=== PATIENT | male | born 1960 | race Caucasian/White ===

== ENCOUNTER → 2017-11-06 | Outpatient (CLI) | payer OTHER ==
[2017-11-06 08:54] LABS: BUN/CREATININE RATIO 11.2 (6.0-26.0); CALCIUM 9.2 mg/dL (8.4-10.2); POTASSIUM 4.1 mmol/L (3.6-5.0); TOTAL PROTEIN 7.4 g/dL (6.3-8.2)
== END ==
LOC: LAB 08:25
PROVIDERS: Family Medicine
DX: Z00.00 Encounter for general adult medical examination without abnormal findings (principal); D22.9 Melanocytic nevi, unspecified; Z13.6 Encounter for screening for cardiovascular disorders; Z13.1 Encounter for screening for diabetes mellitus; Z80.42 Family history of malignant neoplasm of prostate; Z12.5 Encounter for screening for malignant neoplasm of prostate

== ENCOUNTER → 2017-11-18 | Outpatient (CLI) | payer OTHER ==
[2017-11-18 16:27] LABS: HEMOGLOBIN 11.4 g/dL (13.5-18.0); MEAN PLATELET VOLUME 9.5 fl (7.4-10.4); RED BLOOD COUNT 4.76 M/mm3 (4.20-5.60); RED CELL DISTRIBUTION WIDTH 15.8 % (11.5-14.5); WHITE BLOOD COUNT 5.8 K/mm3 (4.8-10.8)
== END ==
LOC: LAB 16:11
PROVIDERS: Family Medicine
DX: M25.651 Stiffness of right hip, not elsewhere classified (principal); M25.652 Stiffness of left hip, not elsewhere classified; M62.59 Muscle wasting and atrophy, not elsewhere classified, multiple sites

== ENCOUNTER → 2017-11-19 | Outpatient (CLI) | payer OTHER | LOC: LAB 16:45 | PROVIDERS: Family Medicine | DX: D64.9 Anemia, unspecified (principal) ==

== ENCOUNTER → 2017-11-27 | Outpatient (CLI) | payer OTHER | LOC: LAB 09:56 | DX: D64.9 Anemia, unspecified (principal) ==

== ENCOUNTER → 2017-12-11 | Outpatient (CLI) | payer OTHER ==
[2017-12-11 14:45] LABS: HEMATOCRIT 40.2 % (42.0-52.0); HEMOGLOBIN 12.8 g/dL (13.5-18.0); RED BLOOD COUNT 5.25 M/mm3 (4.20-5.60); RED CELL DISTRIBUTION WIDTH 18.2 % (11.5-14.5); WHITE BLOOD COUNT 4.9 K/mm3 (4.8-10.8)
[2017-12-13 10:14] LABS: C-REACTIVE PROTEIN XXX
== END ==
LOC: LAB 12:55
PROVIDERS: Family Medicine
DX: D50.9 Iron deficiency anemia, unspecified (principal); M79.1 Myalgia; D22.5 Melanocytic nevi of trunk; M25.50 Pain in unspecified joint

== ENCOUNTER → 2018-02-02 | Outpatient (CLI) | payer OTHER ==
[2018-02-02 15:26] LABS: HEMATOCRIT 41.3 % (42.0-52.0); HEMOGLOBIN 13.5 g/dL (13.5-18.0); MEAN CELL VOLUME 79 fl (78-100); MEAN CORPUSCULAR HEMOGLOBIN 26 pg (27-31); MEAN CORPUSCULAR HGB CONC 33 g/dL (33-37); MEAN PLATELET VOLUME 10.6 fl (7.4-10.4); PLATELET COUNT 216 K/mm3 (130-400); RED BLOOD COUNT 5.24 M/mm3 (4.20-5.60); WHITE BLOOD COUNT 10.8 K/mm3 (4.8-10.8)
[2018-02-02 15:52] LABS: ALBUMIN 4.2 g/dL (3.5-5.0); BUN/CREATININE RATIO 17.1 (6.0-26.0); CALCIUM 9.2 mg/dL (8.4-10.2); POTASSIUM 4.4 mmol/L (3.6-5.0); TOTAL BILIRUBIN 1.4 mg/dL (0.2-1.3); TOTAL PROTEIN 7.4 g/dL (6.3-8.2)
[2018-02-02 16:16] LABS: LYMPHOCYTE 6 % (20-51); MONOCYTE 2 % (3-10); NEUTROPHILS 92 % (42-75)
== END ==
LOC: LAB 15:08
PROVIDERS: Family Medicine
DX: D50.9 Iron deficiency anemia, unspecified (principal); D86.89 Sarcoidosis of other sites

== ENCOUNTER → 2018-04-29 | Outpatient (CLI) | payer OTHER ==
[2018-04-29 18:16] LABS: HEMOGLOBIN 14.2 g/dL (13.5-18.0); MEAN CELL VOLUME 85 fl (78-100); MEAN CORPUSCULAR HEMOGLOBIN 29 pg (27-31); MEAN CORPUSCULAR HGB CONC 34 g/dL (33-37); PLATELET COUNT 200 K/mm3 (130-400); RED BLOOD COUNT 4.93 M/mm3 (4.20-5.60); RED CELL DISTRIBUTION WIDTH 15.3 % (11.5-14.5); WHITE BLOOD COUNT 10.1 K/mm3 (4.8-10.8)
[2018-04-29 18:20] LABS: ALBUMIN 4.2 g/dL (3.5-5.0); CALCIUM 9.8 mg/dL (8.4-10.2); POTASSIUM 4.2 mmol/L (3.6-5.0); TOTAL BILIRUBIN 2.6 mg/dL (0.2-1.3); TOTAL PROTEIN 6.8 g/dL (6.3-8.2)
[2018-04-29 19:26] LABS: LYMPHOCYTE 9 % (20-51); MONOCYTE 2 % (3-10); NEUTROPHILS 89 % (42-75)
== END ==
LOC: LAB 17:53
DX: D86.89 Sarcoidosis of other sites (principal)

== ENCOUNTER → 2018-08-27 | Outpatient (CLI) | payer OTHER ==
[2018-08-27 16:25] LABS: ALBUMIN 4.5 g/dL (3.5-5.0); CALCIUM 9.6 mg/dL (8.4-10.2); POTASSIUM 4.2 mmol/L (3.6-5.0); TOTAL BILIRUBIN 1.3 mg/dL (0.2-1.3); TOTAL PROTEIN 7.1 g/dL (6.3-8.2)
[2018-08-27 16:32] LABS: EOS % 0.2 % (0.0-4.0); HEMATOCRIT 42.4 % (42.0-52.0); HEMOGLOBIN 14.1 g/dL (13.5-18.0); LYMPH# 1.1 (1.50-4.00); MEAN CELL VOLUME 87 fl (78-100); MEAN CORPUSCULAR HEMOGLOBIN 29 pg (27-31); MEAN CORPUSCULAR HGB CONC 33 g/dL (33-37); MEAN PLATELET VOLUME 10.6 fl (7.4-10.4); MONO # 0.6 (0.20-0.80); NEU # 6.8 (1.40-6.50); PLATELET COUNT 241 K/mm3 (130-400); RED BLOOD COUNT 4.86 M/mm3 (4.20-5.60); RED CELL DISTRIBUTION WIDTH 13.7 % (11.5-14.5); WHITE BLOOD COUNT 8.6 K/mm3 (4.8-10.8)
== END ==
LOC: LAB 16:01
PROVIDERS: Psychiatry & Neurology Neurology
DX: D86.89 Sarcoidosis of other sites (principal); Z79.899 Other long term (current) drug therapy

== ENCOUNTER → 2018-10-11 | Outpatient (CLI) | payer OTHER | LOC: RAD 14:43 | DX: M16.12 Unilateral primary osteoarthritis, left hip (principal) ==

== ENCOUNTER → 2018-11-11 | Outpatient (CLI) | payer OTHER ==
[2018-11-11 15:37] LABS: ALBUMIN 4.3 g/dL (3.5-5.0); CALCIUM 9.5 mg/dL (8.4-10.2); EOS % 0.3 % (0.0-4.0); HEMATOCRIT 42.6 % (42.0-52.0); HEMOGLOBIN 14.2 g/dL (13.5-18.0); LYMPH# 1.1 (1.50-4.00); MEAN CELL VOLUME 86 fl (78-100); MEAN CORPUSCULAR HEMOGLOBIN 29 pg (27-31); MEAN CORPUSCULAR HGB CONC 33 g/dL (33-37); MONO # 0.5 (0.20-0.80); NEU # 5.1 (1.40-6.50); PLATELET COUNT 203 K/mm3 (130-400); POTASSIUM 4.1 mmol/L (3.6-5.0); RED BLOOD COUNT 4.98 M/mm3 (4.20-5.60); RED CELL DISTRIBUTION WIDTH 14.3 % (11.5-14.5); WHITE BLOOD COUNT 6.7 K/mm3 (4.8-10.8)
[2018-11-11 16:07] LABS: TOTAL BILIRUBIN 2.2 mg/dL (0.2-1.3)
== END ==
LOC: LAB 15:11
PROVIDERS: Psychiatry & Neurology Neurology
DX: Z79.899 Other long term (current) drug therapy (principal)

== ENCOUNTER → 2018-11-22 | Outpatient (CLI) | payer OTHER | LOC: RAD 09:22 | DX: D50.9 Iron deficiency anemia, unspecified (principal); D86.89 Sarcoidosis of other sites; E80.7 Disorder of bilirubin metabolism, unspecified ==

== ENCOUNTER → 2018-11-24 | Outpatient (CLI) | payer OTHER | LOC: LAB 15:46 | DX: D50.9 Iron deficiency anemia, unspecified (principal); D86.89 Sarcoidosis of other sites ==

== ENCOUNTER → 2018-12-17 | Outpatient (CLI) | payer OTHER ==
[2018-12-17 15:42] LABS: ALBUMIN 4.3 g/dL (3.5-5.0); DIRECT BILIRUBIN 0.4 mg/dL (0.0-0.5); TOTAL PROTEIN 6.5 g/dL (6.4-8.3)
== END ==
LOC: LAB 15:08
PROVIDERS: Psychiatry & Neurology Neurology
DX: R94.5 Abnormal results of liver function studies (principal); Z79.899 Other long term (current) drug therapy

== ENCOUNTER → 2019-04-11 | Outpatient (CLI) | payer OTHER | LOC: RAD 10:21 | DX: M17.11 Unilateral primary osteoarthritis, right knee (principal); M25.461 Effusion, right knee ==

== ENCOUNTER → 2019-04-28 | Outpatient (CLI) | payer OTHER | LOC: RAD 07:00 | DX: K75.3 Granulomatous hepatitis, not elsewhere classified (principal) ==

== ENCOUNTER → 2019-04-29 | Outpatient (CLI) | payer OTHER ==
[2019-04-29 14:59] LABS: EOS # 0.1 (0.04-0.40); EOS % 2.4 % (0.0-4.0); HEMATOCRIT 40.9 % (42.0-52.0); LYMPH# 1.7 (1.50-4.00); MEAN CELL VOLUME 87 fl (78-100); MEAN CORPUSCULAR HEMOGLOBIN 30 pg (27-31); MEAN CORPUSCULAR HGB CONC 34 g/dL (33-37); MEAN PLATELET VOLUME 10.4 fl (7.4-10.4); MONO # 0.6 (0.20-0.80); NEU # 2.6 (1.40-6.50); PLATELET COUNT 190 K/mm3 (130-400); RED BLOOD COUNT 4.71 M/mm3 (4.20-5.60); RED CELL DISTRIBUTION WIDTH 13.4 % (11.5-14.5)
[2019-04-29 15:10] LABS: POTASSIUM 3.5 mmol/L (3.5-5.1)
[2019-04-29 15:11] LABS: CALCIUM 9.4 mg/dL (8.3-10.5)
[2019-04-29 15:12] LABS: TOTAL PROTEIN 5.9 g/dL (6.4-8.3)
[2019-04-29 15:14] LABS: TOTAL BILIRUBIN 1.8 mg/dL (0.2-1.2)
== END ==
LOC: LAB 14:51
PROVIDERS: Family Medicine
DX: D86.89 Sarcoidosis of other sites (principal); K75.3 Granulomatous hepatitis, not elsewhere classified

== ENCOUNTER → 2019-06-03 | Outpatient (CLI) | payer OTHER ==
[2019-06-03 08:57] LABS: POTASSIUM 4.2 mmol/L (3.5-5.1)
[2019-06-03 08:59] LABS: CALCIUM 9.2 mg/dL (8.3-10.5)
[2019-06-03 09:00] LABS: TOTAL PROTEIN 6.3 g/dL (6.4-8.3)
[2019-06-03 09:02] LABS: TOTAL BILIRUBIN 0.9 mg/dL (0.2-1.2)
[2019-06-03 09:19] LABS: EOS # 0.1 (0.04-0.40); EOS % 1.6 % (0.0-4.0); HEMATOCRIT 41.5 % (42.0-52.0); LYMPH# 1.5 (1.50-4.00); MEAN CELL VOLUME 88 fl (78-100); MEAN CORPUSCULAR HEMOGLOBIN 30 pg (27-31); MEAN CORPUSCULAR HGB CONC 34 g/dL (33-37); MEAN PLATELET VOLUME 10.9 fl (7.4-10.4); MONO # 0.6 (0.20-0.80); NEU # 2.9 (1.40-6.50); PLATELET COUNT 208 K/mm3 (130-400); RED BLOOD COUNT 4.72 M/mm3 (4.20-5.60); RED CELL DISTRIBUTION WIDTH 13.6 % (11.5-14.5); WHITE BLOOD COUNT 5.1 K/mm3 (4.8-10.8)
== END ==
LOC: LAB 08:38
PROVIDERS: Family Medicine
DX: Z00.00 Encounter for general adult medical examination without abnormal findings (principal); Z12.5 Encounter for screening for malignant neoplasm of prostate; D86.89 Sarcoidosis of other sites; E78.5 Hyperlipidemia, unspecified

== ENCOUNTER → 2019-10-03 | Outpatient (CLI) | payer OTHER ==
[2019-10-03 15:48] LABS: EOS # 0.1 (0.04-0.40); HEMATOCRIT 40.7 % (42.0-52.0); HEMOGLOBIN 13.8 g/dL (13.5-18.0); LYMPH# 1.4 (1.50-4.00); MEAN CELL VOLUME 88 fl (78-100); MEAN CORPUSCULAR HEMOGLOBIN 30 pg (27-31); MEAN CORPUSCULAR HGB CONC 34 g/dL (33-37); MEAN PLATELET VOLUME 10.1 fl (7.4-10.4); MONO # 0.5 (0.20-0.80); NEU # 2.6 (1.40-6.50); PLATELET COUNT 194 K/mm3 (130-400); RED BLOOD COUNT 4.62 M/mm3 (4.20-5.60); RED CELL DISTRIBUTION WIDTH 13.6 % (11.5-14.5); WHITE BLOOD COUNT 4.6 K/mm3 (4.8-10.8)
[2019-10-03 15:56] LABS: ALBUMIN 4.1 g/dL (3.5-5.0)
[2019-10-03 15:57] LABS: POTASSIUM 3.5 mmol/L (3.5-5.1)
[2019-10-03 15:58] LABS: CALCIUM 9.3 mg/dL (8.3-10.5)
[2019-10-03 15:59] LABS: TOTAL PROTEIN 6.1 g/dL (6.4-8.3)
[2019-10-03 16:01] LABS: TOTAL BILIRUBIN 1.5 mg/dL (0.2-1.2)
== END ==
LOC: LAB 15:34
PROVIDERS: Psychiatry & Neurology Neurology
DX: D86.89 Sarcoidosis of other sites (principal); Z79.899 Other long term (current) drug therapy

== ENCOUNTER → 2020-02-15 | Outpatient (CLI) | payer OTHER ==
[2020-02-15 16:05] LABS: EOS # 0.1 (0.04-0.40); EOS % 2.1 % (0.0-4.0); HEMATOCRIT 41.3 % (42.0-52.0); HEMOGLOBIN 14.3 g/dL (13.5-18.0); LYMPH# 1.5 (1.50-4.00); MEAN CELL VOLUME 88 fl (78-100); MEAN CORPUSCULAR HEMOGLOBIN 30 pg (27-31); MEAN CORPUSCULAR HGB CONC 35 g/dL (33-37); MEAN PLATELET VOLUME 9.9 fl (7.4-10.4); MONO # 0.5 (0.20-0.80); NEU # 2.2 (1.40-6.50); PLATELET COUNT 185 K/mm3 (130-400); RED CELL DISTRIBUTION WIDTH 13.4 % (11.5-14.5); WHITE BLOOD COUNT 4.3 K/mm3 (4.8-10.8)
[2020-02-15 16:16] LABS: ALBUMIN 4.3 g/dL (3.5-5.0)
[2020-02-15 16:19] LABS: TOTAL PROTEIN 6.9 g/dL (6.4-8.3)
[2020-02-15 16:21] LABS: TOTAL BILIRUBIN 1.5 mg/dL (0.2-1.2)
== END ==
LOC: LAB 15:56
PROVIDERS: Psychiatry & Neurology Neurology
DX: D86.89 Sarcoidosis of other sites (principal); Z79.899 Other long term (current) drug therapy

== ENCOUNTER 2020-05-04 08:09 | Emergency (ER) | payer OTHER ==
[~2020-05-04] VITALS: Ht 177.8 cm; Wt 84.1 kg
[2020-05-04 08:28] LABS: EOS # 0.1 (0.04-0.40); EOS % 2.6 % (0.0-4.0); HEMATOCRIT 42.3 % (42.0-52.0); HEMOGLOBIN 14.4 g/dL (13.5-18.0); LYMPH# 1.1 (1.50-4.00); MEAN CELL VOLUME 91 fl (78-100); MEAN CORPUSCULAR HEMOGLOBIN 31 pg (27-31); MEAN CORPUSCULAR HGB CONC 34 g/dL (33-37); MEAN PLATELET VOLUME 10.3 fl (7.4-10.4); MONO # 0.5 (0.20-0.80); NEU # 2.9 (1.40-6.50); PLATELET COUNT 193 K/mm3 (130-400); RED BLOOD COUNT 4.63 M/mm3 (4.20-5.60); RED CELL DISTRIBUTION WIDTH 13.9 % (11.5-14.5); WHITE BLOOD COUNT 4.7 K/mm3 (4.8-10.8)
[2020-05-04 08:37] LABS: ALBUMIN 4.1 g/dL (3.5-5.0)
[2020-05-04 08:38] LABS: POTASSIUM 4.1 mmol/L (3.5-5.1); SODIUM 142 mmol/L (136-145)
[2020-05-04 08:39] LABS: CALCIUM 8.8 mg/dL (8.3-10.5)
[2020-05-04 08:40] LABS: GLUCOSE 125 mg/dL (75-110); TOTAL PROTEIN 6.4 g/dL (6.4-8.3)
[2020-05-04 08:41] LABS: CARBON DIOXIDE 26 mmol/L (22-29)
[2020-05-04 08:42] LABS: TOTAL BILIRUBIN 1.2 mg/dL (0.2-1.2)
[2020-05-04 08:45] LABS: AST-SGOT 28 U/L (5-34)
[2020-05-04 08:47] LABS: ALT/SGPT 28 U/L (0-55)
[2020-05-04 08:58] LABS: TROPONIN-I < 0.03 ng/mL (<0.030)
[2020-05-04] MEDS ORDERED: NEURONTIN800 M1 PO (09:56)
[2020-05-04] MEDS ORDERED: TREXALL15 MG PO (09:57)
[2020-05-04] MEDS ORDERED: TREXALL5 MG (09:57)
[2020-05-04] MEDS ORDERED: FOLIC ACID1 MG PO (09:59)
[2020-05-04] MEDS ORDERED: LEVOFLOXACIN750 MG PO (11:03)
[2020-05-04 11:55] VITALS: BP 124/68
== END 2020-05-04 11:55 | disposition home or self-care (01) ==
LOC: ED 08:09
PROVIDERS: Nurse Practitioner Primary Care
DX: J18.9 Pneumonia, unspecified organism (principal); D86.9 Sarcoidosis, unspecified; Z20.828 Contact with and (suspected) exposure to other viral communicable diseases

== ENCOUNTER → 2020-06-20 | Outpatient (CLI) | payer OTHER ==
[~2020-06-20] MED LIST: FOLIC ACID1 MG PO; GABAPENTIN TAB600 MG PO; LEVOFLOXACIN750 MG PO; NEURONTIN800 M1 PO; TREXALL15 MG PO; TREXALL5 MG
== END ==
LOC: RAD 16:41
DX: M17.12 Unilateral primary osteoarthritis, left knee (principal)

== ENCOUNTER → 2020-06-28 | Outpatient (CLI) | payer OTHER ==
[~2020-06-28] MED LIST changes: -GABAPENTIN TAB600 MG PO
[2020-06-28 12:10] LABS: EOS # 0.1 (0.04-0.40); HEMATOCRIT 42.7 % (42.0-52.0); HEMOGLOBIN 14.6 g/dL (13.5-18.0); LYMPH# 1.4 (1.50-4.00); MEAN CELL VOLUME 89 fl (78-100); MEAN CORPUSCULAR HEMOGLOBIN 31 pg (27-31); MEAN CORPUSCULAR HGB CONC 34 g/dL (33-37); MEAN PLATELET VOLUME 10.1 fl (7.4-10.4); MONO # 0.4 (0.20-0.80); NEU # 2.5 (1.40-6.50); PLATELET COUNT 187 K/mm3 (130-400); RED BLOOD COUNT 4.78 M/mm3 (4.20-5.60); RED CELL DISTRIBUTION WIDTH 12.8 % (11.5-14.5); WHITE BLOOD COUNT 4.4 K/mm3 (4.8-10.8)
[2020-06-28 12:19] LABS: POTASSIUM 3.8 mmol/L (3.5-5.1)
[2020-06-28 12:20] LABS: ALBUMIN 4.3 g/dL (3.5-5.0)
[2020-06-28 12:21] LABS: CALCIUM 9.4 mg/dL (8.3-10.5)
[2020-06-28 12:22] LABS: TOTAL PROTEIN 6.8 g/dL (6.4-8.3)
[2020-06-28 12:24] LABS: TOTAL BILIRUBIN 1.8 mg/dL (0.2-1.2)
== END ==
LOC: LAB 11:49
PROVIDERS: Physician Assistant
DX: Z00.00 Encounter for general adult medical examination without abnormal findings (principal); Z12.5 Encounter for screening for malignant neoplasm of prostate; E78.5 Hyperlipidemia, unspecified

== ENCOUNTER 2020-07-18 09:05 | Emergency (ER) | payer OTHER ==
[2020-07-18 09:38] LABS: HEMOGLOBIN 14.9 g/dL (13.5-18.0); MEAN CELL VOLUME 89 fl (78-100); MEAN CORPUSCULAR HEMOGLOBIN 31 pg (27-31); MEAN CORPUSCULAR HGB CONC 35 g/dL (33-37); MEAN PLATELET VOLUME 10.5 fl (7.4-10.4); PLATELET COUNT 166 K/mm3 (130-400); RED BLOOD COUNT 4.84 M/mm3 (4.20-5.60); RED CELL DISTRIBUTION WIDTH 13.2 % (11.5-14.5); WHITE BLOOD COUNT 3.3 K/mm3 (4.8-10.8)
[2020-07-18] MEDS ORDERED: GABAPENTIN TAB600 MG PO (09:38)
[2020-07-18 09:42] LABS: ALBUMIN 4.1 g/dL (3.5-5.0)
[2020-07-18 09:43] LABS: POTASSIUM 3.9 mmol/L (3.5-5.1); SODIUM 140 mmol/L (136-145)
[2020-07-18 09:44] LABS: CALCIUM 8.9 mg/dL (8.3-10.5)
[2020-07-18 09:45] LABS: GLUCOSE 102 mg/dL (75-110); TOTAL PROTEIN 6.6 g/dL (6.4-8.3)
[2020-07-18 09:46] LABS: CARBON DIOXIDE 27 mmol/L (22-29)
[2020-07-18 09:50] LABS: AST-SGOT 38 U/L (5-34)
[2020-07-18 09:51] LABS: ALT/SGPT 41 U/L (0-55)
[2020-07-18 09:59] LABS: TROPONIN-I < 0.03 ng/mL (<0.030)
[2020-07-18 10:04] LABS: D-DIMER 0.04 mg/L FEU (0.15-0.50); LYMPHOCYTE 24 % (20-51); MONOCYTE 10 % (3-10); NEUTROPHILS 64 % (42-75)
[2020-07-18 11:45] VITALS: BP 115/94
== END 2020-07-18 11:46 | disposition home or self-care (01) ==
LOC: ED 09:05
PROVIDERS: Physician Assistant
DX: U07.1 COVID-19 (principal); Z79.899 Other long term (current) drug therapy

== ENCOUNTER → 2021-01-31 | Outpatient (CLI) | payer OTHER ==
[~2021-01-31] MED LIST changes: +GABAPENTIN TAB600 MG PO
[2021-01-31 15:32] LABS: BASO # 0.02 (0.02-0.10); EOS # 0.08 (0.04-0.40); EOS % 1.7 % (0.0-4.0); HEMOGLOBIN 13.9 g/dL (13.5-18.0); LYMPH# 1.32 (1.50-4.00); MEAN CELL VOLUME 90 fl (78-100); MEAN CORPUSCULAR HEMOGLOBIN 31 pg (27-31); MEAN CORPUSCULAR HGB CONC 35 g/dL (33-37); MONO # 0.45 (0.20-0.80); NEU # 2.74 (1.40-6.50); PLATELET COUNT 163 K/mm3 (130-400); RED BLOOD COUNT 4.43 M/mm3 (4.20-5.60); RED CELL DISTRIBUTION WIDTH 12.7 % (11.5-14.5); WHITE BLOOD COUNT 4.6 K/mm3 (4.8-10.8)
[2021-01-31 15:52] LABS: ALBUMIN 3.9 g/dL (3.5-5.0); POTASSIUM 3.9 mmol/L (3.5-5.1)
[2021-01-31 15:53] LABS: CALCIUM 8.7 mg/dL (8.3-10.5)
[2021-01-31 15:55] LABS: TOTAL PROTEIN 6.3 g/dL (6.4-8.3)
[2021-01-31 15:56] LABS: TOTAL BILIRUBIN 1.5 mg/dL (0.2-1.2)
== END ==
LOC: LAB 15:18
DX: E55.9 Vitamin D deficiency, unspecified (principal); D86.89 Sarcoidosis of other sites; Z79.899 Other long term (current) drug therapy

== ENCOUNTER → 2021-06-19 | Outpatient (CLI) | payer OTHER ==
[2021-06-19 07:24] LABS: BASO # 0.02 K/mm3 (0.02-0.10); EOS # 0.13 K/mm3 (0.04-0.40); EOS % 3.2 % (0.0-4.0); HEMATOCRIT 43.5 % (42.0-52.0); HEMOGLOBIN 14.8 g/dL (13.5-18.0); MEAN CELL VOLUME 91 fl (78-100); MEAN CORPUSCULAR HEMOGLOBIN 31 pg (27-31); MEAN CORPUSCULAR HGB CONC 34 g/dL (33-37); MEAN PLATELET VOLUME 10.1 fl (7.4-10.4); MONO # 0.42 K/mm3 (0.20-0.80); NEU # 2.32 K/mm3 (1.40-6.50); PLATELET COUNT 157 K/mm3 (130-400); RED BLOOD COUNT 4.76 M/mm3 (4.20-5.60); RED CELL DISTRIBUTION WIDTH 12.4 % (11.5-14.5); WHITE BLOOD COUNT 4.1 K/mm3 (4.8-10.8)
[2021-06-19 07:35] LABS: POTASSIUM 4.1 mmol/L (3.5-5.1)
[2021-06-19 07:36] LABS: ALBUMIN 4.1 g/dL (3.5-5.0)
[2021-06-19 07:37] LABS: CALCIUM 9.2 mg/dL (8.3-10.5)
[2021-06-19 07:38] LABS: TOTAL PROTEIN 6.2 g/dL (6.4-8.3)
[2021-06-19 07:40] LABS: TOTAL BILIRUBIN 1.8 mg/dL (0.2-1.2)
== END ==
LOC: LAB 07:07
PROVIDERS: Family Medicine
DX: Z00.00 Encounter for general adult medical examination without abnormal findings (principal); E78.5 Hyperlipidemia, unspecified

== ENCOUNTER → 2022-03-12 | Outpatient (CLI) | payer OTHER ==
[2022-03-12 15:51] LABS: BASO # 0.02 K/mm3 (0.02-0.10); EOS % 2.3 % (0.0-4.0); HEMOGLOBIN 13.5 g/dL (13.5-18.0); LYMPH# 1.53 K/mm3 (1.50-4.00); MEAN CELL VOLUME 93 fl (78-100); MEAN CORPUSCULAR HEMOGLOBIN 31 pg (27-31); MEAN CORPUSCULAR HGB CONC 34 g/dL (33-37); MEAN PLATELET VOLUME 9.6 fl (7.4-10.4); MONO # 0.44 K/mm3 (0.20-0.80); NEU # 2.23 K/mm3 (1.40-6.50); PLATELET COUNT 163 K/mm3 (130-400); RED BLOOD COUNT 4.31 M/mm3 (4.20-5.60); RED CELL DISTRIBUTION WIDTH 13.4 % (11.5-14.5); WHITE BLOOD COUNT 4.3 K/mm3 (4.8-10.8)
[2022-03-12 16:02] LABS: POTASSIUM 3.6 mmol/L (3.5-5.1)
[2022-03-12 16:04] LABS: CALCIUM 9.1 mg/dL (8.3-10.5)
[2022-03-12 16:05] LABS: TOTAL PROTEIN 6.2 g/dL (6.4-8.3)
[2022-03-12 16:07] LABS: TOTAL BILIRUBIN 1.7 mg/dL (0.2-1.2)
== END ==
LOC: LAB 15:41
PROVIDERS: Psychiatry & Neurology Neurology
DX: D86.89 Sarcoidosis of other sites (principal); Z79.899 Other long term (current) drug therapy

== ENCOUNTER → 2022-06-18 | Outpatient (CLI) | payer OTHER ==
[2022-06-18 08:04] LABS: BASO # 0.02 K/mm3 (0.02-0.10); EOS # 0.08 K/mm3 (0.04-0.40); HEMATOCRIT 42.4 % (42.0-52.0); HEMOGLOBIN 14.5 g/dL (13.5-18.0); LYMPH# 1.09 K/mm3 (1.50-4.00); MEAN CELL VOLUME 94 fl (78-100); MEAN CORPUSCULAR HEMOGLOBIN 32 pg (27-31); MEAN CORPUSCULAR HGB CONC 34 g/dL (33-37); MEAN PLATELET VOLUME 9.9 fl (7.4-10.4); MONO # 0.39 K/mm3 (0.20-0.80); NEU # 2.41 K/mm3 (1.40-6.50); PLATELET COUNT 166 K/mm3 (130-400); RED BLOOD COUNT 4.53 M/mm3 (4.20-5.60)
[2022-06-18 08:08] LABS: ALBUMIN 4.1 g/dL (3.5-5.0); POTASSIUM 3.8 mmol/L (3.5-5.1); SODIUM 142 mmol/L (136-145)
[2022-06-18 08:09] LABS: CALCIUM 9.2 mg/dL (8.3-10.5)
[2022-06-18 08:10] LABS: GLUCOSE 89 mg/dL (75-110)
[2022-06-18 08:11] LABS: TOTAL PROTEIN 6.4 g/dL (6.4-8.3)
[2022-06-18 08:12] LABS: CARBON DIOXIDE 27 mmol/L (22-29); TOTAL BILIRUBIN 2.7 mg/dL (0.2-1.2)
[2022-06-18 08:16] LABS: AST-SGOT 28 U/L (5-34)
[2022-06-18 08:17] LABS: ALT/SGPT 27 U/L (0-55)
[2022-06-18 11:23] LABS: ERYTHROCYTE SEDIMENTATION RATE 3 mm/hr (0-20)
== END ==
LOC: LAB 07:34
PROVIDERS: Family Medicine
DX: Z00.00 Encounter for general adult medical examination without abnormal findings (principal); E78.5 Hyperlipidemia, unspecified; D50.9 Iron deficiency anemia, unspecified; G64 Other disorders of peripheral nervous system; D86.9 Sarcoidosis, unspecified; R17 Unspecified jaundice; F41.1 Generalized anxiety disorder

== ENCOUNTER → 2024-01-27 | Outpatient (CLI) | payer OTHER ==
[2024-01-27 14:03] LABS: BASO # 0.03 K/mm3 (0.02-0.10); EOS # 0.06 K/mm3 (0.04-0.40); EOS % 1.3 % (0.0-4.0); HEMATOCRIT 42.1 % (42.0-52.0); HEMOGLOBIN 14.6 g/dL (13.5-18.0); LYMPH# 1.39 K/mm3 (1.50-4.00); MEAN CELL VOLUME 91 fl (78-100); MEAN CORPUSCULAR HEMOGLOBIN 32 pg (27-31); MEAN CORPUSCULAR HGB CONC 35 g/dL (33-37); MONO # 0.38 K/mm3 (0.20-0.80); NEU # 2.91 K/mm3 (1.40-6.50); PLATELET COUNT 184 K/mm3 (130-400); RED BLOOD COUNT 4.61 M/mm3 (4.20-5.60); RED CELL DISTRIBUTION WIDTH 12.9 % (11.5-14.5); WHITE BLOOD COUNT 4.8 K/mm3 (4.8-10.8)
[2024-01-27 14:10] LABS: ALBUMIN 4.3 g/dL (3.4-4.8)
[2024-01-27 14:12] LABS: CALCIUM 9.3 mg/dL (8.3-10.5)
[2024-01-27 14:13] LABS: TOTAL PROTEIN 6.4 g/dL (6.2-8.1)
[2024-01-27 14:15] LABS: TOTAL BILIRUBIN 2.5 mg/dL (0.2-1.2)
== END ==
LOC: LAB 13:50
PROVIDERS: Psychiatry & Neurology Neurology
DX: D86.2 Sarcoidosis of lung with sarcoidosis of lymph nodes (principal); D84.9 Immunodeficiency, unspecified; D86.89 Sarcoidosis of other sites; Z79.899 Other long term (current) drug therapy

== ENCOUNTER → 2024-03-02 | Outpatient (CLI) | payer OTHER ==
[2024-03-02 08:18] LABS: BASO # 0.03 K/mm3 (0.02-0.10); EOS # 0.11 K/mm3 (0.04-0.40); EOS % 2.1 % (0.0-4.0); HEMATOCRIT 43.7 % (42.0-52.0); HEMOGLOBIN 15.1 g/dL (13.5-18.0); LYMPH# 1.12 K/mm3 (1.50-4.00); MEAN CELL VOLUME 92 fl (78-100); MEAN CORPUSCULAR HEMOGLOBIN 32 pg (27-31); MEAN CORPUSCULAR HGB CONC 35 g/dL (33-37); MEAN PLATELET VOLUME 9.9 fl (7.4-10.4); MONO # 0.42 K/mm3 (0.20-0.80); NEU # 3.46 K/mm3 (1.40-6.50); PLATELET COUNT 170 K/mm3 (130-400); RED BLOOD COUNT 4.77 M/mm3 (4.20-5.60); WHITE BLOOD COUNT 5.2 K/mm3 (4.8-10.8)
[2024-03-02 08:26] LABS: ALBUMIN 4.2 g/dL (3.4-4.8)
[2024-03-02 08:27] LABS: CALCIUM 9.7 mg/dL (8.3-10.5)
[2024-03-02 08:28] LABS: TOTAL PROTEIN 6.6 g/dL (6.2-8.1)
[2024-03-02 08:30] LABS: TOTAL BILIRUBIN 2.7 mg/dL (0.2-1.2)
== END ==
LOC: LAB 07:58
PROVIDERS: Family Medicine
DX: Z12.5 Encounter for screening for malignant neoplasm of prostate (principal); I10 Essential (primary) hypertension; E78.5 Hyperlipidemia, unspecified

== ENCOUNTER → 2024-06-16 | Outpatient (CLI) | payer OTHER ==
[2024-06-16 13:20] LABS: BASO # 0.01 K/mm3 (0.02-0.10); EOS # 0.01 K/mm3 (0.04-0.40); EOS % 0.1 % (0.0-4.0); HEMATOCRIT 44.6 % (42.0-52.0); HEMOGLOBIN 15.2 g/dL (13.5-18.0); LYMPH# 1.15 K/mm3 (1.50-4.00); MEAN CELL VOLUME 94 fl (78-100); MEAN CORPUSCULAR HEMOGLOBIN 32 pg (27-31); MEAN CORPUSCULAR HGB CONC 34 g/dL (33-37); MEAN PLATELET VOLUME 10.1 fl (7.4-10.4); MONO # 0.38 K/mm3 (0.20-0.80); NEU # 6.46 K/mm3 (1.40-6.50); PLATELET COUNT 209 K/mm3 (130-400); RED BLOOD COUNT 4.74 M/mm3 (4.20-5.60); RED CELL DISTRIBUTION WIDTH 12.6 % (11.5-14.5)
[2024-06-16 13:24] LABS: ALBUMIN 4.5 g/dL (3.4-4.8)
[2024-06-16 13:26] LABS: CALCIUM 9.6 mg/dL (8.3-10.5)
[2024-06-16 13:27] LABS: TOTAL PROTEIN 6.8 g/dL (6.2-8.1)
[2024-06-16 13:29] LABS: TOTAL BILIRUBIN 1.7 mg/dL (0.2-1.2)
== END ==
LOC: LAB 12:59
PROVIDERS: Family Medicine
DX: D50.9 Iron deficiency anemia, unspecified (principal); R17 Unspecified jaundice; R73.9 Hyperglycemia, unspecified; E03.9 Hypothyroidism, unspecified

== ENCOUNTER → 2024-07-06 | Outpatient (CLI) | payer OTHER | LOC: RAD 07:47 | DX: E04.9 Nontoxic goiter, unspecified (principal) ==

== ENCOUNTER → 2024-07-25 | Day surgery (SDC) | payer OTHER ==
[~2024-07-25] MED LIST changes: +Lidocaine PF 2% (20 MG/ML) 2 ML VIAL ONE
== END | disposition home or self-care (01) ==
LOC: MSO 07:55
DX: Z12.11 Encounter for screening for malignant neoplasm of colon (principal)
CPT/HCPCS: 00812; J2704; J7120